=== PATIENT | female | born 1950 | race Caucasian/White ===

== ENCOUNTER → 2020-05-21 | Outpatient (CLI) | payer MEDICARE, MEDICAID ==
--- NOTE | 2020-05-21 15:19 | RAD ---
XR EXAM OF ANKLE_LEFT 3V DATE: 05/21/2020 12:09 PM INDICATION: ACUTE LEFT ANKLE PAIN, STEPPED OFF CURB AND THEN FELL. COMPARISON: None. FINDINGS: Bones: Horizontal lucency crossing the medial malleolus below the level of the syndesmosis, seen best on mortise view. Joints: The ankle mortise is congruent. No widening of the distal tibiofibular syndesmosis. Miscellaneous: None. IMPRESSION: Linear lucency above the tip of the medial malleolus is suspicious for a nondisplaced fracture. Corre late for focal tenderness. Electronically signed by: Bigg Bliss MD (05/21/2020 3:17 PM) [id number]
== END ==
LOC: RAD 11:58
PROVIDERS: ATTEND Family Medicine
DX: M25.572 Pain in left ankle and joints of left foot (principal)
CPT/HCPCS: 73610

== ENCOUNTER → 2021-03-03 | Outpatient (CLI) | payer MEDICARE, MEDICAID ==
[~2021-03-03] MED LIST: AMIT25TA PO; CEPH500T PO; CHLO118L3 TP; CRESTOR40 MG PO; DEXL60CA2 PO; GABA-689 PO; HYDR-2761 PO; IBUP-1060 PO; SERT100T PO; SUMA50TA3 PO; TIZA-75 PO
--- NOTE | 2021-03-03 17:55 | KCIC ---
XR CHEST 2V History: Cough. Comparison: None. Technique: PA and lateral chest radiographs. Findings: The lungs are adequately and symmectrically inflated. No airspace consolidation, pleural effusion or pneumothorax. Calcified right lower lobe granuloma. The cardiomediastinal silhoutte and pulmonary vas culature are within normal limits. Biphasic curvature of the spine. Right upper quadrant cholecystect lesly clips. Impression: 1. No acute cardiopulmonary process. Electronically signed by: Kelby Saldana MD (03/03/2021 5:52 PM) [id number]
== END ==
LOC: KCIC 12:57
PROVIDERS: ATTEND Family Medicine
DX: J84.10 Pulmonary fibrosis, unspecified (principal); J98.4 Other disorders of lung; R05.9 Cough, unspecified; M43.8X9 Other specified deforming dorsopathies, site unspecified; Z90.49 Acquired absence of other specified parts of digestive tract
CPT/HCPCS: 71046

== ENCOUNTER → 2021-03-07 | Outpatient (CLI) | payer MEDICARE, MEDICAID ==
[2021-03-07 15:26] LABS: BASO # 0.1 x10^3/uL (0.0-0.2); BASO % 1 % (0-3); EOS # 0.1 x10^3/uL (0.0-0.7); EOS % 1 % (0-3); HEMATOCRIT 36.2 % (36.0-47.0); LYMPH # 2.3 x10^3/uL (1.0-4.8); LYMPH % 26 % (24-48); MEAN CORPUSCULAR HEMOGLOBIN 29 pg (25-35); MEAN CORPUSCULAR HGB CONC 33 g/dL (31-37); MEAN CORPUSCULAR VOLUME 87 fL (79-100); MONO # 0.6 x10^3/uL (0.0-1.1); MONO % 7 % (0-9); NEUT # 5.7 x10^3/uL (1.8-7.7); NEUT % 65 % (31-73); PLATELET COUNT 296 x10^3/uL (140-400); RED BLOOD COUNT 4.18 x10^6/uL (3.50-5.40); RED CELL DISTRIBUTION WIDTH 14.8 % (11.5-14.5); WHITE BLOOD COUNT 8.8 x10^3/uL (4.0-11.0)
[2021-03-07 15:27] LABS: CALCIUM 8.6 mg/dL (8.5-10.1); GFR 54.7; POTASSIUM 3.8 mmol/L (3.5-5.1)
== END ==
LOC: LAB 14:49
PROVIDERS: ATTEND Plastic Surgery
DX: Z01.818 Encounter for other preprocedural examination (principal); N62 Hypertrophy of breast
CPT/HCPCS: 36415; 80048; 85025; 85610; 85730

== ENCOUNTER 2021-03-08 06:16 | Observation (INO) | payer MEDICARE, MEDICAID ==
[~2021-03-08] VITALS: Ht 172.7 cm; Wt 69.0 kg
[2021-03-08] VITALS (10 sets, daily range): BP systolic 121–154; BP diastolic 54–86
[~2021-03-08 06:16] MED LIST changes: -CEPH500T PO; -CHLO118L3 TP; -HYDR-2761 PO; -IBUP-1060 PO; +IV RINGERS,LACTATED 1000ML 1,000 ML IV SCH; +PROCHLORPERAZINE 10 MG/2 ML VIAL. IVP PRN; +ceFAZolin SODIUM IV Push 1 GM VIAL. IVP PRN; +fentaNYL PF VIAL 100 MCG/2 ML VIAL IVP PRN
[2021-03-08] MEDS ORDERED: ONDANSETRON PF 4 MG/2 ML VIAL. ONE (07:12)
[2021-03-08] MEDS ORDERED: LIDOCAINE 2% PF 5 ML VIAL. ONE (07:12)
[2021-03-08] MEDS ORDERED: PROPOFOL 10 MG/ML (20ML) VIAL. IV ONE (07:12)
[2021-03-08] MEDS ORDERED: DEXAMETHASONE SOD PHOS 4 MG/ML VIAL ONE (07:12)
[2021-03-08] MEDS ORDERED: fentaNYL PF VIAL 100 MCG/2 ML VIAL ONE ×2 (07:12→10:13)
[2021-03-08] MEDS ORDERED: SUCCINYLCHOLINE 200 MG/10 ML VIAL. ONE (07:13)
[2021-03-08] MEDS ORDERED: ceFAZolin SODIUM IV Push 1 GM VIAL. IVP ONE ×2 (08:39→11:24)
[2021-03-08] MEDS ORDERED: EPINEPHrine VIAL 30 MG/30 ML VIAL ONE (08:45)
[2021-03-08] MEDS ORDERED: ePHEDrine PF IN SALINE 50 MG/10 ML SYRINGE. IV ONE (11:14)
[2021-03-08] MEDS ORDERED: BACITRACIN TOPICAL OINT PACKET. TP ONE (11:31)
[2021-03-08] MEDS ORDERED: MORPHINE SULFATE 2 MG/ML INJ. ONE (13:11)
[2021-03-08] MEDS: MORPHINE SULFATE 2 MG/ML INJ. IVP PRN ×2 (13:15→13:27)
[2021-03-08] MEDS ORDERED: HYDROmorphone 2 MG/ML VIAL ONE (13:24)
[2021-03-08] MEDS ORDERED: PROCHLORPERAZINE 10 MG/2 ML VIAL. IV PRN (13:30)
[2021-03-08] MEDS ORDERED: 0.9 % SODIUM CHLORIDE 10 ML DISP.SYRIN. IV PRN (13:30)
[2021-03-08] MEDS ORDERED: ONDANSETRON PF 4 MG/2 ML VIAL. IVP PRN (13:30)
[2021-03-08] MEDS ORDERED: IBUPROFEN 400 MG TABLET. PO PRN (13:30)
[2021-03-08] MEDS ORDERED: MORPHINE SULFATE 2 MG/ML INJ. IV PRN (13:30)
[2021-03-08] MEDS: HYDROmorphone 2 MG/ML VIAL IVP PRN ×2 (13:32→13:46)
[2021-03-08] MEDS ORDERED: HYDROcodone/APAP 5/325MG 1 TAB TABLET PO PRN (13:45)
--- NOTE | 2021-03-08 13:46 | PDOC4 ---
OPERATIVE NOTE Date: Date: Mar 08, 2021 Pre-Op Diagnosis: Macromastia Post-Op Diagnosis: Same Procedure Performed: Bilateral breast reduction CPT [id number] Incision time 8:51 AM12:41 PM Surgeon: Sravani Arango MD Anesthesia Type: General LMA anesthesia Blood Loss: 150 mL Specimans Obtained: Right breast tissue 557 g, left breast tissue 634 g Findings: See operative report Complications: None Operative Note: Indications This is a 71yo female with a history of symptomatic bilateral macromastia which was refractory to conservative measures. Therefore she presents today for bilateral breast reduction. Her mammogram is current and normal. She is felt to be a good candidate for the procedure. The procedure and risks have been described in detail including the risk of bleeding, infection, scarring, wounds, delayed wound healing, loss of nipple sensation or incisional sensation, complete loss of the nipple, asymmetry, need for revision procedures. The patient understood the risks and desire to proceed. Procedure The patient was marked in the preoperative holding area. Breast measurements were obtained and included the sternal notch to nipple distance, nipple to IMF distance at rest and on stretch, and the base diameter of the breast. The ster nal midline, breast meridian, and inframammary folds were marked bilaterally. The new position of the nipple areolar complex was marked correlating to the inframammary fold along the breast meridian. An inverted T pattern skin excision was drawn. A planned superior medial pedicle was marked in operating room. The patient was then transported to the operating room and placed on the OR table in the supine position. SCDs were applied to both lower extremities and working prior to the induction of general LMA anesthesia. IV antibiotics were administered. A timeout was completed verifying the correct patient and correct procedure. The chest was prepped with DuraPrep and draped in the usual sterile fashion's. For each side the procedure proceeded as follows: The markings were redelineated. The nipple areolar complex was inscribed with a flexible ruler measuring 12 cm. A #15 scalpel was used to incise the skin around the nipple areolar complex. The superior medial pedicle was also incised. The pedicle was then de-epithelialized and the remaining incisions were created. The pedicle was then created to a depth of approximately 2.5 cm, ensuring that the blood supply to the pedicle was maintained. The inferior medial and lateral wedge tissues were excised and the superior pocket was deepened towards the clavicle. The superior medial pedicle was then rotated superiorly into place. [place] were used to tailor tack the skin. The patient was then sat up to 90 degrees and symmetry was assessed. The patient returned to the supine position and contouring was performed manually as liposuction was not available. Once satisfactory contour had been achieved, 3-0 PDS and 4-0 PDS were used to approximate the deep dermis of the nipple areolar complex and the infra-areolar incision. 2-0 PDS was used to approximate the T-junction. 20 Quill [place] Derm was then used to run the deep dermis along the inframammary fold. The skin was then run with 4-0 Monocryl. Bacitracin and Xeroform were used to dress the nipple areolar complexes. Half inch Steri-Strips were used along the incisions. A soft dressing and medium bra were placed. The patient tolerated the procedure well and was taken to the PACU in stable condition. All instrument and needle counts were correct at the end of the procedure. There were no immediate complications. SRAVANI ARANGO MD Mar 08, 2021 13:46
[2021-03-08] MEDS: HEPARIN for SUB-Q USE 5,000 UNIT/ML VIAL. SQ SCH ×2 (14:00→21:39)
[2021-03-08] MEDS: GABAPENTIN 300 MG CAPSULE. PO SCH ×2 (15:46→21:31)
[2021-03-08] MEDS: HYDROcodone/APAP 5/325MG 1 TAB TABLET PO PRN ×2 (17:47→22:39)
[2021-03-08] MEDS: DOCUSATE SODIUM 100 MG CAPSULE. PO SCH (21:31)
--- NOTE | 2021-03-08 21:38 | NUR ---
2200 dose Heparin held per Lb in Pharmacy. Will start in AM.
[2021-03-09 03:00] VITALS: BP 105/60
[2021-03-09] MEDS: GABAPENTIN 300 MG CAPSULE. PO SCH ×2 (06:03→13:54)
[2021-03-09] MEDS: HEPARIN for SUB-Q USE 5,000 UNIT/ML VIAL. SQ SCH ×2 (06:07→14:34)
--- NOTE | 2021-03-09 06:23 | NUR ---
Patient requesting home medications renewed. Call to Dr. Moncada at [phone], message left on recorder regarding home medication renewal.
[2021-03-09 07:00] VITALS: BP 129/66
[2021-03-09] MEDS ORDERED: PANTOPRAZOLE 40 MG TABLET.DR. PO SCH (07:30)
[2021-03-09] MEDS: DOCUSATE SODIUM 100 MG CAPSULE. PO SCH (07:51)
[2021-03-09] MEDS ORDERED: tiZANidine 4 MG TABLET. PO SCH (09:00)
[2021-03-09] MEDS ORDERED: SERTRALINE 50 MG TABLET. PO SCH (09:00)
[2021-03-09 11:00] VITALS: BP 138/60
[2021-03-09] MEDS: HYDROcodone/APAP 5/325MG 1 TAB TABLET PO PRN ×2 (13:55→18:48)
[2021-03-09 18:25] VITALS: BP 110/58
[2021-03-09] MEDS ORDERED: HYDR-2761 PO (18:43)
[2021-03-09] MEDS ORDERED: IBUP-1060 PO (18:43)
[2021-03-09] MEDS ORDERED: CHLO118L3 TP (18:43)
[2021-03-09] MEDS ORDERED: CEPH500T PO (18:43)
--- NOTE | 2021-03-09 19:06 | NUR ---
Discharge instructions given. Answered questions and concerns. Verbalized understanding. Waiting for her ride. Prescriptions sent via electronic to pharmacy.
--- NOTE | 2021-03-09 19:20 | NUR ---
PATIENT DISCHARGED TO HOME PER HER FRIEND'S CAR PER WHEELCHAIR. PATIENT ASSISTED WITH SEAT BELT FOR SAFETY. PATIENT VERBALIZED THAT ALL BELONGINGS ARE WITH HER. PATIENT DENIES PAIN OR ANY COMPLAINTS.
--- NOTE | 2021-03-09 20:51 | PDOC ---
Date of Service: DATE: 03/09/21 TIME: 20:48 Progress Note: Postop day 1 status post bilateral breast reduction. She reports feeling well with pain 4 out of 10, controlled with medication. She has been ambulating without assistance. She reports using her incentive spirometer 3-4 times per hour. She is tolerating a regular diet without nausea or vomiting. She is passing flatus. Afebrile. Vital signs stable. General: No acute distress Breasts: Bilateral breasts with good contour. No asymmetry. No suspected fluid collection. Nipples sensate with some bruising. Assessment: Postoperative bilateral breast reduction Plan: We will proceed with discharge home. Sravani Arango MD Justifications for Admission Other Justification SRAVANI ARANGO MD Mar 09, 2021 20:51
--- NOTE | 2021-03-09 20:55 | PDOC3 ---
Discharge Summary Visit Information Date of Admission: Mar 08, 2021 Date of Discharge: Mar 09, 2021 Admitting Diagnosis: Macromastia Final Diagnosis Macromastia Brief Hospital Course Allergies Allergies Coded Allergies Type Severity Reaction Last Updated Verified No Known Drug Allergies 03/08/21 No Vital Signs Vital Signs Date Time Temp Pulse Resp B/P (MAP) Pulse Ox O2 Delivery O2 Flow Rate FiO2 03/09/21 18:48 20 03/09/21 18:25 98.7 86 110/58 (75) 93 Room Air 98.7 03/08/21 14:04 2 Lab Results N/A Brief Hospital Course Ms. Jones is a 71 old female who presented with symptomatic bilateral macroma stia requiring a breast reduction. She underwent a bilateral breast reduction and was admitted for observation postoperatively for pain control and recovery from anesthesia. She has recovered well and is ready to be discharged home. Assessment Assessment Status post bilateral breast reduction Discharge Information Condition at Discharge: Stable Follow Up: Weeks (Monday ok. Can you talk?) Scheduled Amitriptyline Hcl (Amitriptyline Hcl) 25 Mg Tablet, 1 TAB PO QHS for , #30 Ref 5 (Reported) Entered as Reported by: Andriy Montano on 03/04/211321 Last Taken: Unknown Dose on 03/07/21 Last Action: Reviewed on 03/08/21 0 649 by TAWANA BRADSHAW Cephalexin (Cephalexin) 500 Mg Tablet, 1 TAB PO QID for prophylaxis for 5 Days, #20 Prescribed by: CHRISTINA ARANGO MD on 03/09/21 1843 Chlorhexidine Gluconate (Chlorhexidine Gluconate) 118 Ml Liquid, 1 MUMTAZ TP DAILY for when directed to shower for 2 Days, #237 Ref 0 Prescribed by: CHRISTINA ARANGO MD on 03/09/21 1843 Dexlansoprazole (Dexilant) 60 Mg Cap., 1 CAP PO DAILY for for 30 Days, #30 Ref 0 (Reported) Entered as Reported by: Andriy Montano on 03/04/21 1324 Last Taken: Unknown Dose on 03/08/21 0500 Last Action: Converted on 03/09/21 0658 by DENEEN GRIGSBY Gabapentin (Gabapentin ) 400 Mg Capsule, 400 MG PO BID for NEUROGENIC PAIN, (Reported) Entered as Reported by: Andriy Montano on 03/04/211321 Last Taken: Unknown Dose on 03/07/21 Last Action: Reviewed on 03/08/21648 by TAWANA BRADSHAW Rosuvastatin Calcium (Crestor) 40 Mg Tablet, 20 MG PO HS for FOR CHOLESTEROL, #30 Ref 0 (Reported) Entered as Reported by: KASSANDRA STALEY on 03/04/21 1405 Last Taken: Unknown Dose on 03/07/21 Last Action: Reviewed on 03/08/21648 by TAWANA BRADSHAW Sertraline Hcl (Zoloft) 100 Mg Tablet, 1 TAB PO BID for , #30 Ref 5 (Reported) Entered as Reported by: Andriy Montano on 03/04/211322 Last Taken: Unknown Dose on 03/07/21 Last Action: Converted on 03/09/21657 by DENEEN GRIGSBY Tizanidine Hcl (Tizanidine Hcl) 4 Mg Tablet, 0.5 TAB PO DAILY for , #60 (Reported) Entered as Reported by: Andriy Montano on 03/04/211322 Last Taken: Unknown Dose on 03/07/21 Last Action: Continued on 03/09/21657 by DENEEN GRIGSBY Scheduled PRN Hydrocodone Bit/Acetaminophen (Hydrocodone-Apap 5-325 ) 1 Tab Tablet, 1 TAB PO PRN Q6HRS PRN for PAIN for 3 Days, #10 Ref 0 Prescribed by: CHRISTINA ARANGO MD on 03/09/211843 Ibuprofen (Ibuprofen) 800 Mg Tablet, 800 MG PO PRN Q6HRS PRN for INFLAMMATION for 28 Days, #60 Ref 1 Prescribed by: CHRISTINA ARANGO MD on 03/09/211842 Sumatriptan Succinate (Imitrex) 50 Mg Tablet, 1 TAB PO UD PRN for MIGRAINE HEADACHE, #9 Ref 1 (Reported) Entered as Reported by: Andriy Montano on 03/04/211321 Last Taken: Unknown Dose on 03/07/21 Last Action: Reviewed on 03/08/21648 by TAWANA BRADSHAW Patient Instructions Patient Instructions Patient given instructions to avoid heavy lifting more than 10 pounds or s trenuous activity. Leave dressing intact until postop visit. Sponge bath only. Pain medication as needed. Dr. Arango with any concerns. Justicifation of Admission Dx: Justifications for Admission: Justification of Admission Dx: Yes Comments: postoperative status CHRISTINA ARANGO MD Mar 09, 2021 20:55
--- NOTE | 2021-03-10 16:12 | PATHOLOGY ---
[facility] Accession Number: [id number] . 01 Material submitted: . PART A: breast - RIGHT BREAST. Modifiers: right PART B: breast - LEFT BREAST . 02 Diagnosis: A. Skin and breast tissue, right breast reduction: - Mammary hypertrophy (weight 582 grams). - Stromal fibrosis and mild duct ectasia, focal. . B. Skin and breast tissue, left breast reduction: - Mammary hypertrophy (weight 654 grams). - Stromal fibrosis, focal. - Small intramammary lymph node showing reactive changes. . (JPM:mm; 03/10/2021) [facility] 03/10/2021 1354 Local . 02 Comment: There is no atypia or evidence of malignancy. . (JPM:mml; 03/10/2021) . 02 Electronically signed: . Russell Ellis MD, Pathologist NPI- [id number] . 01 Gross description: . A. Fixative: Formalin Labeled: Right breast Weight: 582 g Dimensions: 17.9 x 17.7 x 5.2 cm Skin: Pale [place], slightly wrinkled Cut surface: Bright yellow fibrofatty with less than 1% fibrous tissue present Lesions/abnormalities: None identified . Publicity Manager sections of specimen in cassettes A1 and A2. . B. Fixative: Formalin Labeled: Left breast Weight: 654 g Dimensions: 21.2 x 13.8 x 4.9 cm Skin: Pale [place], slightly wrinkled Cut surface: Bright yellow fibrofatty with less than 1% fibrous tissue present Lesions/abnormalities: A possible lymph node is identified measuring 0.5 cm . Publicity Manager sections of specimen in cassettes B1 and B2, with the possible lymph node submitted in cassette B1. (CAA; 03/09/2021) QAC/QAC 03/09/2021 1158 Local . 02 Pathologist provided ICD-10: N60.31, N60.41, N60.32, N60.42 . 02 CPT . 350819, [id number] Specimen Comment: A courtesy copy of this report has been sent to [phone] Specimen Comment: Report sent to Specimen Comment: A duplicate report has been generated due to demographic updates. Performed at: 01 [facility] [address], [place] [id number] MD Marco Henderson MD Phone: [phone] Performed at: [facility] [address] [place], [place] [id number] MD Russell Ellis MD Phone: [phone]
== END 2021-03-09 19:20 | disposition home or self-care (01) ==
LOC: SURG 06:16 → 4 NORTH 13:21 → UNDOADMOB 13:53 → 4 NORTH 13:53 → 4 SOUTHEST 03-09 07:36
PROVIDERS: ADMIT Plastic Surgery; ATTEND Plastic Surgery
DX: Z42.1 Encounter for breast reconstruction following mastectomy (principal); N62 Hypertrophy of breast
CPT/HCPCS: 19318; 96365; 96366; 96372; 96375; A4209; A4213; A4314; A4364; A4930; A6223; A6253; A6254; A6258; A6403; G0378; G0379; J0171; J0330; J0690; J1100; J1170; J1644; J2270; J2405; J2704; J3010; 88305; A4322; A4452; A6443